=== PATIENT | female | born 1970 | race Caucasian/White ===

== ENCOUNTER 2019-11-11 17:14 | Emergency (ER) | payer OTHER ==
--- OUTSIDE RECORDS SUMMARY | 2019-11-11 17:19 | XMS REPORT | Continuity of Care Document ---
:1970 External Reference #:[id number] Author Name Wang Brasher M.D. (transmitted by agent of provider Lacey Burks) Address [address] [place] [id number] Care Team Providers Name Role Phone Jaron Vyas III, MD - Internal Care Team Information Group Leader [employer] [phone] Medicine Castillo Hillman MD - Urology Care Team Information Group Leader [employer] [phone] Lacey Narvaez M.D. - Surgery of Care Team Information Group Leader [employer] the Hand Problems Active Problems Provider Date Abdominal pain Jaron Vyas M.D. Onset: 09/11/2011 Pure hypercholesterolemia Jaron Vyas M.D. Onset: 11/16/2011 Kidney stone Jaron Vyas M.D. Onset: 11/16/2011 Allergic rhinitis Jaron Vyas M.D. Onset: 01/07/2013 Social History Type Date Description Comments Sex Unknown Tobacco Use Start: Unknown Never Smoked Cigarettes ETOH Use Denies alcohol use Tobacco Use Start: Unknown Patient has never smoked 2nd hand exposure most of youth. Smoking Status Reviewed: 10/06/19 Patient has never smoked 2nd hand exposure most of youth. Exercise Exercises regularly walks Type/Frequency Allergies, Adverse Reactions, Alerts Active Allergies Reaction Severity Comments Date Erythromycin GI Upset 11/04/2009 Steri-Strips blisters 11/16/2011 Imvexxy 08/20/2019 Medications Active Medications SIG Qnty Indications Ordering Date Provider Meloxicam take one tab 180tabs Sven Ag, 09/05/2019 7.5mg Tablets twice daily as M.D. needed for pain, avoid other NSAIDs B12 Fast Dissolve sublingual daily 90tabs Sven Arzolador, 07/17/2019 5000mcg M.DDory Tablets Dispers Estrace One gram 85gm Lizzie Hoang, 07/07/2019 0.1mg/GM Cream vaginally twice a [employer] week Patanol 1 drop both eyes 5ml Unknown 0.1% Solution every day as needed allergies Dymista Use 1 [place] In Unknown 137-50mcg/Act Each Nostril Suspension Twice A Day Levocetirizine Take 1 Tablet [place] Unknown Dihydrochloride Mouth Once Daily 5mg Tablets Famotidine OTC Unknown 10mg Tablets History Medications Imvexxy Starter Pack insert 1 tablet 16units N95.1 Lizzie Clementkins, 2018 - vaginally every [employer] 06/27/2019 10mcg Insert day for 14 days, then 2 times a week Imvexxy Maintenance insert one ovule 8units N95.1 Lizzie Clementkins, 2018 - Pack vaginally 2x/week [employer] 06/27/2019 10mcg Insert Medications Administered in Office Medication SIG Qnty Indications Ordering Provider Date Depomedrol 40MG Lacey Narvaez M.D. 04/10/2019 Injection Depomedrol 40MG Lacey Narvaez M.D. 04/10/2019 Injection Immunizations CPT Code Status Date Vaccine Reaction Lot # [id number] Given 11/04/2009 Tdap - TDAP given 03/08/11 (pt Tetanus/Diptheria/Acellular didn't receive on Pertussis 11/10/09. 0.5ml IM in left deltoid lot# [id number] exp 08/09/13 [facility] pasteur Vital Signs Date Vital Result Comment 10/06/2019 10:02am Height 64.5 inches 5'4.50" Weight 198.00 lb Heart Rate 86 /min BP Systolic 140 mmHg BP Diastolic 90 mmHg Respiratory Rate 12 /min Body Temperature 98.0 F Pain Level 2 BMI (Body Mass Index) 33.5 kg/m2 09/23/2019 9:30am Height 63 inches 5'3" Weight 194.00 lb Heart Rate 75 /min BP Systolic Sitting 143 mmHg BP Diastolic Sitting 86 mmHg BMI (Body Mass Index) 34.4 kg/m2 Results Test Acquired Facility Test Result H/L Range Note Date Alkaline Phos 07/23/2019 [facility] Alkaline 156 U/L Abnormal 35 - 104 1 Isoenzymes [address] [place] [address] [phone] Alp Liver 1% 56.1 % 27.8-76.3 Alp Liver 1 87.5 IU/L Abnormal 16.2-70.2 Alp Liver 2% 4.1 % 0.0-8.0 Alp Liver 2 6.4 IU/L Abnormal 0.0-5.8 Alp Bone % 29.3 % 19.1-67.7 Alp Bone 45.7 IU/L Abnormal 12.1-42.7 Alp Intestine % 10.5 % 0.0-20.6 Alp Intestine 16.4 IU/L Abnormal 0.0-11.0 Alp Placental NotPresent 2 Pthi 07/23/2019 [facility] PTH Intact 82.8 pg/mL Normal 12-88 [address] [place] [address] [phone] Calcium (PTH Intact) 9.4 mg/dL Normal 8.6-10.3 Laboratory test 07/10/2019 [facility] Vitamin D 21.4 ng/mL Normal 20-50 3, 4 finding 101 [facility] [place] [address] 25(Oh) [phone] Neutrophil 07/10/2019 [facility] C-Anca Negative Negative Cytoplasmic AB [address] [place], [place] [id number] [phone] P-Anca Negative Negative 5 Vitamin B6 07/10/2019 [facility] Pyridoxal 5-Phosphate 5 g/L 5-50 6 [address] [place], [place] [id number] [phone] Pyridoxic Acid 5 g/L 3-30 7 Iron & Iron Binding 07/10/2019 [facility] Iron 89 g/dL Normal 50-212 Capacity [address] [place] [address] [phone] Unsaturated Iron Binding < 418 g/dL Total Iron Binding Capacity 433 g/dL Normal 250-450 Transferrin 309 mg/dL Normal 203-362 % Iron Saturation 21 % Normal 15-55 Laboratory test 07/10/2019 [facility] Immunoglobulin E 11.1 kU/ L <= 214 8 finding (Ige) [place] [address] [phone] Tryptase 13.8 ng/mL Abnormal <11.5 9 Aldolase 6.1 U/L <7.7 10 Angiotensin Converting Enzyme 37 U/L 16 - 85 11 Celiac Hla 07/10/2019 [facility] Hla-Dqa1 SEE BELOW [address] [place] [address] [phone] [id number]-[id number] SEE BELOW 13 Celiac Gene Pairs Present? No Celiac Gene Interpretation See Comment 14 Celiac Panel 07/10/2019 [facility] Immunoglobulin A 172 mg/dL 61 - [address] [place] [address] [phone] Tissue Transglutaminase IgA Ab <1.2 U/mL 15 Celiac Interpretation See Comment 16 Viki Igg AB Reflex 07/10/2019 [facility] SS-A/Ro Antibody <0.[address] [place] [address] [phone] SS-B/La Antibody <0.2 U 18 Sm (Blanchard) IgG Antibody <0.2 U 19 CONSUMER ATTORNEY Antibody, IgG <0.2 U 20 Scl-70 (Scleroderma) Antibody <0.2 U 21 Caroline-1 Antibody <0.2 U 22 Laboratory test 07/10/2019 [facility] Thyroperoxidase AB 1.16 Normal <[address] IU/[place] [address] [phone] Anti Double Stranded Dna AB <12.3 IU/mL 24 Creatine Kinase(CK) 127 U/L Normal 10-223 25 Tick-Borne Panel 07/10/2019 [facility] Babesia Negative Negative PCR Blood [address] [place] [address] [phone] Babesia ducani Negative Negative Babesia divergens/Mo-1 Negative Negative 26 Anaplasma phagocytophilum Negative Negative Ehrlichia chaffeensis Negative Negative Ehrlichia ewingii/canis Negative Negative Ehrlichia muris eauclairensis Negative Negative 27 B. miyamotoi PCR, B Negative Negative 28 Lyme Disease AB 07/10/2019 [facility] IgG Immunoblot Negative Negative Immunoblot WB [address] [place] [address] [phone] IgG detected against p39 kDa IgM Immunoblot Negative Negative IgM detected against None kDa Lyme Disease Interpretation See Comment 29 Immunoglobulins 07/10/2019 [facility] Immunoglobulin G 851 767 - [address] mg/dL [address] [place] [address] [phone] Immunoglobulin M 73 mg/dL 37 - 286 Immunoglobulin A 174 mg/dL 61 - 356 Laboratory test 07/10/2019 [facility] Alkaline 137 U/L High 34 -104 [address] Phosphatase [place], [place] [address] [phone] Vitamin B12 And 07/10/2019 [facility] Vitamin B12 239 Normal 180-914 [address] pg/[place] [address] [phone] Folic Acid (Folate) 18.25 ng/mL >3.99 33 Laboratory 07/10/2019 [facility] Cyclic <15.[address] [place] [address] [phone] [phone] Laboratory 06/16/2019 [facility] Gardnerella/Yeast SEE RESULT 35, test finding DRIVE : Vaginal Dna BELOW [address] [place] [address] [phone] Laboratory 06/16/2019 [facility] TSH (Thyroid Stim 1.88 Normal 0.[address] Horm) mcIU/mL 4-5 [place] [address] .60 [phone] Hemoglobin A1c (Glyco HGB) 5.6 % Normal 4.0-5.6 37 FSH And LH 06/16/2019 [facility] FSH (Follicle Stim 82.5 mIU/mL [address] Hormone) [place] [address] [phone] LH (Lutenizing Hormone) 40.4 mIU/mL 39 1 Please check labs this month 2 REFERENCE VALUE Not present Test Performed by: [address] [address] Drainage Inspector: Israel Lynn M.D. Ph.D.; CLIA# [id number] 3 Please check labs this week 4 Total 25-Hydroxyvitamin D2 and D3 (25-OH-VitD) <10 ng/mL (severe deficiency) 10-19 ng/mL (mild to moderate deficiency) 20-50 ng/mL (optimum levels) 51-80 ng/mL (increased risk of hypercalciuria) >80 ng/mL (toxicity possible) 5 Negative for cANCA and pANCA patterns by immunofluorescence. ADDITIONAL INFORMATION This test was developed and its performance characteristics determined by [facility] in a manner consistent with CLIA requirements. This test has not been cleared or approved by the U.S. Food and Drug Administration. Test Performed by: [facility] [place] [address] Drainage Inspector: Israel Lynn M.D. Ph.D.; CLIA# [id number] 6 ADDITIONAL INFORMATION This test was developed and its performance characteristics determined by [facility] in a manner consistent with CLIA requirements. This test has not been cleared or approved by the U.S. Food and Drug Administration. 7 ADDITIONAL INFORMATION This test was developed and its performance characteristics determined by [facility] in a manner consistent with CLIA requirements. This test has not been cleared or approved by the U.S. Food and Drug Administration. Test Performed by: [facility] [employer] [place] [address] Drainage Inspector: Israel Lynn M.D. Ph.D.; CLIA# [id number] 8 Test Performed by: [place] [address] Drainage Inspector: Israel Lynn M.D. Ph.D.; CLIA# [id number] 9 Test Performed by: [place] [address] Drainage Inspector: Israel Lynn M.D. Ph.D.; CLIA# [id number] 10 Test Performed by: [facility] [place] [address] Drainage Inspector: Israel Lynn M.D. Ph.D.; CLIA# [id number] 11 Test Performed by: [facility] [place] [address] Drainage Inspector: Israel Lynn M.D. Ph.D.; CLIA# [id number] 12 RESULT: 01:02,02:01 REFERENCE VALUE Not Applicable 13 RESULT: 03:03,06:09 DQ Serologic Equivalent: 9,6 REFERENCE VALUE Not Applicable 14 The absence of HLA celiac permissive genes would make the presence of celiac disease unlikely. ADDITIONAL INFORMATION Method: Molecular typing of HLA antigens performed using reverse SSOP and/or SSP methods, reported as serological equivalents and low to medium resolution molecular values. Test Performed by: [facility] [place] [address] Drainage Inspector: Israel Lynn M.D. Ph.D.; CLIA# [id number] 15 REFERENCE VALUE <4.0 (Negative) Test Performed by: [facility] [address] [place] [address] Drainage Inspector: Israel Lynn M.D. Ph.D.; CLIA# [id number] 16 Negative serology. Celiac disease unlikely. However, approximately 10% of patients with celiac disease are seronegative. Also, patients who are already adhering to a gluten-free diet may be seronegative. If celiac disease is highly clinically suspected, consider HLA-DQ typing. Test Performed by: [facility] [employer] [facility] [employer] [address] [place] [address] Drainage Inspector: Israel Lynn M.D. Ph.D.; YASEMINIA# [id number] 17 REFERENCE VALUE <1.0 (Negative) 18 REFERENCE VALUE <1.0 (Negative) 19 REFERENCE VALUE <1.0 (Negative) 20 REFERENCE VALUE <1.0 (Negative) 21 REFERENCE VALUE <1.0 (Negative) 22 REFERENCE VALUE <1.0 (Negative) Test Performed by: [facility] [employer] - [facility] [employer] [address] [place] [address] Drainage Inspector: Israel Lynn M.D. Ph.D.; YASEMINIA# [id number] 23 Please check labs this week 24 REFERENCE VALUE <30.0 (Negative) Test Performed by: [facility] [address] [place] [address] Drainage Inspector: Israel Lynn M.D. Ph.D.; CLIA# [id number] 25 Please check labs this week 26 ADDITIONAL INFORMATION This test was developed and its performance characteristics determined by [facility] in a manner consistent with CLIA requirements. This test has not been cleared or approved by the U.S. Food and Drug Administration. 27 ADDITIONAL INFORMATION This test was developed and its performance characteristics determined by [facility] in a manner consistent with CLIA requirements. This test has not been cleared or approved by the U.S. Food and Drug Administration. 28 ADDITIONAL INFORMATION This test was developed and its performance characteristics determined by [facility] in a manner consistent with CLIA requirements. This test has not been cleared or approved by the U.S. Food and Drug Administration. Test Performed by: [facility] - [address] [address] Drainage Inspector: Israel Lynn M.D. Ph.D.; CLIA# [id number] 29 Specific serologic response to B. burgdorferi infection is not detected, but cannot rule out early infection during which low or undetectable antibody levels to B. burgdorferi may be present. If clinically indicated, a new serum specimen should be submitted in 7-14 days. ADDITIONAL INFORMATION Per CDC criteria, the Lyme IgG Immunoblot is interpreted as positive if IgG-class antibodies are detected to >=5 B. burgdorferi proteins, and the Lyme IgM Immunoblot is interpreted as positive if IgM-class antibodies are detected to >=2 B. burgdorferi proteins. Immunoblot patterns not meeting these criteria should not be interpreted as positive. Epitopes from certain B. burgdorferi proteins (e.g., p41) are conserved across other bacteria, which may lead to the detection of IgM- and/or IgG-class antibodies on the Lyme disease immunoblots in patients without Lyme disease. Immunoblot should only be ordered on specimens that are positive or equivocal by a FDA-licensed Lyme disease antibody screening test (e.g., EIA). Results of the Lyme IgM immunoblot should not be considered in patients with >= 30 days of symptoms. Test Performed by: [place] [address] Drainage Inspector: Israel Lynn M.D. Ph.D.; CLIA# [id number] 30 Test Performed by: [place] [address] Drainage Inspector: Israel Lynn M.D. Ph.D.; CLIA# [id number] 31 Please check labs this week 32 Normal Range 180 to 914 Indeterminate Range 145 to 180 Deficient Range <145 33 Please check labs this week 34 REFERENCE VALUE <20.0 (Negative) Test Performed by: [place] [address] Drainage Inspector: Israel Lynn M.D. Ph.D.; CLIA# [id number] 35 [id number] SEE RESULT BELOW Name: MOLLY HENDRICKSON : [address]: Lizzie Hoang NP [facility] Acct: [id number] Unit: [id number] AGE: 48 Location: [facility] Re06/16/19 SEX: F Status: REG REF SPEC: [id number] COLEMAN: 06/16/19-[address]: Lizzie Hoang NP [facility] REQ: [id number] RECD: 06/16/19 STATUS: COMP _ SOURCE: VAGINAL SPDESC: ORDERED: Tracy,Yeast DNA, Trich DNA COMMENTS: [id number] Would you like to order Trichomonas Vaginalis testing? Yes Procedure Result Reported Site Gardnerella/Yeast: Vaginal DNA Final 06/17/19- 1243 ML Organism 1 Negative Carrie Organism 2 Negative Gardnerella The presence of G. vaginalis, although suggestive, is not diagnostic for bacterial vaginosis. Results should be interpreted in conjuction with other clinical and laboratory data available. Women with vaginal discharge should be evaluated for risk factors of cervicitis and pelvic inflammatory disease, toxic shock syndrome (S.aureus), and if present, evaluated for organisms not included in this assay such as N. gonorrhoeae, C. trachomatis, Mobiluncus, Mycoplasma and/or Prevotella. Mixed infections may occur. The performance of this test on patient specimens collected during or immediately after antimicrobial therapy is unknown. The presence or absence of Carrie species, or G. vaginalis cannot be used as a test for therapeutic success or failure. Trichomonas: Vaginal DNA Probe Final 06/17/19- 1243 ML Organism 1 Negative Trichomonas CONTINUED ON NEXT PAGE DEPARTMENT OF PATHOLOGY, [address] [place] [address] Stephen Rodriguez M.D. Director [facility] # [id number] Patient: SARAHMOLLY [id number] (Continued) Specimen: [id number] Collected: 06/16/19-1029 Received: 06/16/19-1414 (Continued) Procedure Result Reported Site Trichomonas: Vaginal DNA Probe Final (continued) 06/17/19- 1243 The presence or absence of T. vaginalis cannot be used as a test for therapeutic success or failure. * - Main Lab . END OF REPORT DEPARTMENT OF PATHOLOGY, [address] [place] [address] Stephen Rodriguez M.D. Director [facility] # [id number] 37 Therapeutic target for the treatment of diabetes mellitus patients is <7% HBA1C, and in selective patients <6.0%. Please refer to [place] [employer] diabetic care guidelines for further information. 38 Normally menstruating females - Follicular phase 3 - 9 - Mid-cycle peak 4 - 23 - Luteal phase 1 - 6 Postmenopausal females 16 - 114 39 Normally menstruating females - Follicular Phase 1 - 18 - Mid-Cycle Peak 24 - 105 - Luteal Phase 0.6 - 20 Postmenopausal females 15 - 62 Procedures Date Code Description Status 04/10/2019 00509 Injection, Carpal Tunnel Completed 08/29/2018 32950623 Mammogram Completed 08/01/2017 64005672 Mammogram Completed 07/12/2016 92731916 Mammogram Completed 06/22/2015 [id number] Mammogram Completed 03/31/2013 54886545 Mammogram Completed 03/27/2012 12344698 Mammogram Completed Medical Devices Description No Information Available Encounters Type Date Location Provider Dx Diagnosis Office Visit 09/17/2019 [facility] Stephanie G56.03 Carpal tunnel 9:30a at [facility], RPA-C syndrome, bilateral upper limbs Office Visit 09/05/2019 [facility] Sven Ag, M06.4 Inflammatory 9:20a [facility] polyarthropathy Z79.1 intermediate frame tender (current) use of non-steroidal non-inflam (Nsaid) R74.8 Abnormal levels of other serum enzymes E53.8 Deficiency of other specified B group vitamins M75.51 Bursitis of right shoulder Office Visit 08/20/2019 [facility] Lizzie N95.1 Menopausal and 10:00a [facility] Office Visit 07/10/2019 Rheumat[facility] Sven M06.4 Inflammatory 11:00a [facility] M.D. 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, bilateral W57.xxxA Bit/stung by nonvenom insect & oth nonvenom arthropods, init R20.8 Other disturbances of skin sensation Office Visit 07/07/2019 3:00p [facility] Clary Hamilton, N95.2 Postmenopausal [facility] Ida atrophic vaginitis R10.2 Pelvic and perineal pain Office [facility] N95.1 Menopausal and [facility] female climacteric states N95.2 Postmenopausal atrophic vaginitis Office Visit 06/16/2019 9:30a [facility], N76.0 Acute vaginitis [facility] N95.1 Menopausal and female climacteric states N76.89 Other specified inflammation of vagina and vulva Office Visit 04/10/2019 1:30p [facility] Lacey G56.03 Carpal tunnel at Eunice Narvaez M.D. syndrome, bilateral upper limbs M79.631 Pain in right forearm M79.632 Pain in left forearm M19.041 Primary osteoarthritis, right hand M79.641 Pain in right hand M79.642 Pain in left hand Assessments Date Code Description Provider 10/06/2019 M17.11 Unilateral primary osteoarthritis, right Wang Brasher M.D. knee 09/23/2019 M25.561 Pain in right knee Jaron Vyas M.D. 09/17/2019 G56.03 Carpal tunnel syndrome, bilateral upper Stephanie Bitting, RPA-C limbs 09/05/2019 M06.4 Inflammatory polyarthropathy Sven Ag M.D. 09/05/2019 Z79.1 intermediate frame tender (current) use of non-steroidal Sven Ag M.D. anti-inflammatories (Nsaid) 09/05/2019 R74.8 Abnormal levels of other serum enzymes Sven Ag M.D. 09/05/2019 E53.8 Deficiency of other specified B group Sven Ag M.D. vitamins 09/05/2019 M75.51 Bursitis of right shoulder Sven Ag M.D. 08/20/2019 N95.1 Menopausal and female climacteric states Lizzie Hoang [facility] 07/10/2019 M06.4 Inflammatory polyarthropathy Sven Ag M.D. 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 07/10/2019 W57.xxxA Bitten or stung by nonvenomous insect and Sven Ag M.D. other nonvenomous arthropods, initial encounter 07/10/2019 R20.8 Other disturbances of skin sensation Sven Ag M.D. 07/07/2019 N95.2 Postmenopausal atrophic vaginitis Clary Hamilton, N.P. 07/07/2019 R10.2 Pelvic and perineal pain Clary Hamilton, N.P. 06/20/2019 N95.1 Menopausal and female climacteric states Lizzie Hoang [facility] 06/20/2019 N95.2 Postmenopausal atrophic vaginitis Lizzie Hoang [facility] 06/16/2019 N76.0 Acute vaginitis Lizzie Hoang [facility] 06/16/2019 N95.1 Menopausal and female climacteric states Lizzie Hoang [facility] 06/16/2019 N76.89 Other specified inflammation of vagina and Lizzie Hoang [facility] vulva 04/10/2019 G56.03 Carpal tunnel syndrome, bilateral upper Lacey Narvaez M.D. limbs 04/10/2019 M79.631 Pain in right forearm Lacey Narvaez M.D. 04/10/2019 M79.632 Pain in left forearm Lacey Narvaez M.D. 04/10/2019 M19.041 Primary osteoarthritis, right hand Lacey Narvaez M.D. 04/10/2019 M79.641 Pain in right hand Lacey Narvaez M.D. 04/10/2019 M79.642 Pain in left hand Lacey Narvaez M.D. Plan of Treatment Future Appointment(s):12/05/2019 9:40 am - Sven Ag M.D. at [facility]11/06/2019 9:00 am - Uri Guadalupe MD at [facility]10/06/2019 - Wang Brasher M.D.M17.11 Unilateral primary osteoarthritis, right kneeFollow up:Follow up: As needed Right knee mild patellar arthritis The recent episode may have been inflammatory OK to be active as able: walk ( level), bike, swim Functional Status Description No Information Available Mental Status Description No Information Available Referrals Refer to Dr Reason for Referral Status Appt Date Jodi Cage, PT, OCS Hyperrtonic pelvic floor Sent [address] [place] [address] [phone] Closed Sven Ag MD r/o inflammatory arthritis Sent 07/10/2019 [address] [facility] [place] [address] [phone]
--- OUTSIDE RECORDS SUMMARY | 2019-11-11 17:19 | XMS REPORT | Continuity of Care Document ---
:1970 External Reference #:[id number] Author Name Uri Guadalupe MD (transmitted by agent of provider Brittney Noel) Address [address] [place] [id number] Care Team Providers Name Role Phone Jaron Vyas III, MD - Internal Care Team Information Room Service Server Medicine Castillo Hillman MD - Urology Care Team Information Room Service Server [phone] Lacey Whipple M.D. - Surgery of Care Team Information Room Service Server [phone] the Hand Problems Active Problems Provider Date [...] exposure most of youth. Smoking Status Reviewed: 11/06/19 Patient has never smoked 2nd hand exposure [...] B12 Fast Dissolve sublingual daily 90tabs Sven Ag, 07/17/2019 5000mcg M.D. 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 TECHNICIAN-Cde week Patanol 1 drop both eyes 5ml Unknown 0.1% Solution every day as needed allergies Dymista Use 1 [place] In Unknown 137-50mcg/Act Each Nostril Suspension Twice A Day Levocetirizine Take 1 Tablet [place] Unknown Dihydrochloride Mouth Once Daily 5mg Tablets Famotidine OTC Unknown 10mg Tablets Primal Defense Ultra Unknown Probiotic Sacromyaces Probiotic Unknown Vitamin B Complex 1 by mouth every Unknown day Tablets Magnesium Malate Unknown 1250(141.7mg) mg Tablets Froilan Unknown Tylenol 2 tablets every 4 Unknown 325mg Capsules hours as needed for pain History Medications Imvexxy Starter Pack insert 1 tablet 16units N95.1 Lizzie Clementkins, 2018 - vaginally every 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 04/10/2019 Injection Depomedrol 40MG Lacey Whipple M.D. 04/10/2019 Injection Immunizations CPT Code Status Date Vaccine Reaction Lot # [id number] Given 11/04/2009 Tdap - TDAP given 03/08/11 (pt Tetanus/Diptheria/Acellular didn't receive on Pertussis 11/10/09. 0.5ml IM in left deltoid lot# [id number] exp 08/09/13 [facility] annofi pasteur Vital Signs Date Vital Result Comment 11/06/2019 9:08am Height 64.5 inches 5'4.50" Weight 190.00 lb Heart Rate 82 /min BP Systolic 154 mmHg BP Diastolic 87 mmHg O2 % BldC Oximetry 99 % BMI (Body Mass Index) 32.1 kg/m2 10/06/2019 10:02am Height 64.5 inches 5'4.50" Weight 198.00 lb Heart Rate 86 /min BP Systolic 140 mmHg BP Diastolic 90 mmHg Respiratory Rate 12 /min Body Temperature 98.0 F Pain Level 2 BMI (Body Mass Index) 33.5 kg/m2 Results Test Acquired Facility Test Result H/L Range Note Date Alkaline Phos 07/23/2019 [facility] Alkaline 156 U/L Abnormal 35 - [address] [place] [address] [phone] Alp Liver 1% 56.1 % 27.8-76.3 Alp Liver 1 87.5 IU/L Abnormal 16.2-70.2 Alp Liver 2% 4.1 % 0.0-8.0 Alp Liver 2 6.4 IU/L Abnormal 0.0-5.8 Alp Bone % 29.3 % 19.1-67.7 Alp Bone 45.7 IU/L Abnormal 12.1-42.7 Alp Intestine % 10.5 % 0.0-20.6 Alp Intestine 16.4 IU/L Abnormal 0.0-11.0 Alp Placental NotPresent 2 Pthi 07/23/2019 [facility] PTH Intact 82.8 pg/mL Normal 12-[address] [place], [place] [id number] [phone] Calcium (PTH Intact) 9.4 mg/dL Normal 8.6-10.3 Laboratory test 07/10/2019 [facility] Vitamin D 21.4 ng/mL Normal 20-50 3, [address] [place] [address] 25(Oh) [phone] Neutrophil 07/10/2019 [facility] C-Anca Negative Negative Cytoplasmic AB [address] [place], [place] [id number] [phone] P-Anca Negative Negative 5 Vitamin B6 07/10/2019 [facility] Pyridoxal 5-Phosphate 5 g/L 5-[address] [place] [address] [phone] Pyridoxic Acid 5 g/L 3-30 7 Iron & Iron Binding 07/10/2019 [facility] Iron 89 g/dL Normal 50-[address] [place] [address] [phone] Unsaturated Iron Binding < 418 g/dL Total Iron Binding Capacity 433 g/dL Normal 250-450 Transferrin 309 mg/dL Normal 203-362 % Iron Saturation 21 % Normal 15-55 Laboratory test 07/10/2019 [facility] Immunoglobulin E 11.1 kU/ L <= [address] (Ige) [place] [address] [phone] Tryptase 13.8 ng/mL Abnormal <11.5 9 Aldolase 6.1 U/L <7.7 10 Angiotensin Converting Enzyme 37 U/L 16 - 85 11 Celiac Hla 07/10/2019 [facility] Hla-Dqa1 SEE BELOW [address] [place] [address] [phone] Hla-DQB1 SEE BELOW 13 Celiac Gene Pairs Present? No Celiac Gene Interpretation See Comment 14 Celiac Panel 07/10/2019 [facility] Immunoglobulin A 172 mg/dL 61 - [address] [place] [address] [phone] Tissue Transglutaminase IgA Ab <1.2 U/mL 15 Celiac Interpretation See Comment 16 Viki Igg AB Reflex 07/10/2019 [facility] SS-A/Ro Antibody <0.[address] [place] [address] [phone] SS-B/La Antibody <0.2 U 18 Sm (Blanchard) IgG Antibody <0.2 U 19 FISH MACHINE FEEDER Antibody, IgG <0.2 U 20 Scl-70 (Scleroderma) Antibody <0.2 U 21 Caroline-1 Antibody <0.2 U 22 Laboratory test 07/10/2019 [facility] Thyroperoxidase AB 1.16 Normal <[address] IU/[place] [address] [phone] Anti Double Stranded Dna AB <12.3 IU/mL 24 Creatine Kinase(CK) 127 U/L Normal 10-223 25 Tick-Borne Panel 07/10/2019 [facility] Babesia Negative Negative PCR Blood [address] [place] [address] [phone] Babesia ducani Negative Negative Babesia divergens/Mo-1 Negative Negative 26 Anaplasma phagocytophilum Negative Negative Ehrlichia chaffeensis Negative Negative Ehrlichia ewingii/canis Negative Negative Ehrlichia muris eauclairensis Negative Negative 27 B. miyamotoi PCR, B Negative Negative 28 Lyme Disease AB 07/10/2019 [facility] IgG Immunoblot Negative Negative Immunoblot WB [address] [place] [address] [phone] IgG detected against p39 kDa IgM Immunoblot Negative Negative IgM detected against None kDa Lyme Disease Interpretation See Comment 29 Immunoglobulins 07/10/2019 [facility] Immunoglobulin G 851 767 - [address] mg/dL 1590 [place], [place] [address] [phone] Immunoglobulin M 73 mg/dL 37 - 286 Immunoglobulin A 174 mg/dL 61 - 356 Laboratory test 07/10/2019 [facility] Alkaline 137 U/L High 34 -[address] [place] [address] [phone] Vitamin B12 And 07/10/2019 [facility] Vitamin B12 239 Normal 180-[address] pg/mL [place], [place] [address] [phone] Folic Acid (Folate) 18.25 ng/mL >3.99 33 Laboratory 07/10/2019 [facility] Cyclic <15.[address] [place] [address] [phone] [phone] Laboratory 06/16/2019 [facility] Gardnerella/Yeast SEE RESULT 35, test finding [address] : Vaginal Dna BELOW 36 [place] [address] [phone] Laboratory 06/16/2019 [facility] TSH (Thyroid Stim 1.88 Normal 0.[address] Horm) mcIU/mL 4-5 [place] [address]60 [phone] Hemoglobin A1c (Glyco HGB) 5.6 % Normal 4.0-5.6 37 FSH And LH 06/16/2019 [facility] FSH (Follicle Stim 82.5 mIU/mL [address] Hormone) [place], [place] [id number] [phone] LH (Lutenizing Hormone) 40.4 mIU/mL 39 1 Please check labs this month 2 REFERENCE VALUE Not present Test Performed by: [facility] - [address] [address] Radio Station Engineer: Israel Lynn M.D. Ph.D.; CLIA# [id number] 3 Please check labs this week 4 Total 25-Hydroxyvitamin D2 and D3 (25-OH-VitD) <10 ng/mL (severe deficiency) 10-19 ng/mL (mild to moderate deficiency) 20-50 ng/mL (optimum levels) 51-80 ng/mL (increased risk of hypercalciuria) >80 ng/mL (toxicity possible) 5 Negative for cANCA and pANCA patterns by immunofluorescence. ADDITIONAL INFORMATION This test was developed and its performance characteristics determined by [facility] in a manner consistent with CLIA requirements. This test has not been cleared or approved by the U.S. Food and Drug Administration. Test Performed by: [facility] - [place] [id number] Radio Station Engineer: Israel Lynn M.D. Ph.D.; CLIA# [id number] 6 ADDITIONAL INFORMATION This test was developed and its performance characteristics determined by [facility] in a manner consistent with CLIA requirements. This test has not been cleared or approved by the U.S. Food and Drug Administration. 7 ADDITIONAL INFORMATION This test was developed and its performance characteristics determined by [facility] in a manner consistent with CLIA requirements. This test has not been cleared or approved by the U.S. Food and Drug Administration. Test Performed by: [facility] [place] [address] Radio Station Engineer: Israel Lynn M.D. Ph.D.; CLIA# [id number] 8 Test Performed by: [facility] [place] [address] Radio Station Engineer: Israel Lynn M.D. Ph.D.; CLIA# [id number] 9 Test Performed by: [facility] [place] [address] Radio Station Engineer: Israel Lynn M.D. Ph.D.; CLIA# [id number] 10 Test Performed by: [place] [address] Radio Station Engineer: Israel Lynn M.D. Ph.D.; CLIA# [id number] 11 Test Performed by: [place] [address] Radio Station Engineer: Israel Lynn M.D. Ph.D.; CLIA# [id number] 12 RESULT: 01:02,02:01 REFERENCE VALUE Not Applicable 13 RESULT: 03:03,06:09 DQ Serologic Equivalent: 9,6 REFERENCE VALUE Not Applicable 14 The absence of HLA celiac permissive genes would make the presence of celiac disease unlikely. ADDITIONAL INFORMATION Method: Molecular typing of HLA antigens performed using reverse SSOP and/or SSP methods, reported as serological equivalents and low to medium resolution molecular values. Test Performed by: [place] [address] Radio Station Engineer: Israel Lynn M.D. Ph.D.; CLIA# [id number] 15 REFERENCE VALUE <4.0 (Negative) Test Performed by: [facility] Results [facility] [address] [place] [address] Radio Station Engineer: Israel Lynn M.D. Ph.D.; CLIA# [id number] 16 Negative serology. Celiac disease unlikely. However, approximately 10% of patients with celiac disease are seronegative. Also, patients who are already adhering to a gluten-free diet may be seronegative. If celiac disease is highly clinically suspected, consider HLA-DQ typing. Test Performed by: [facility] Results [facility] [address] [place] [address] Radio Station Engineer: Israel Lynn M.D. Ph.D.; CLIA# [id number] 17 REFERENCE VALUE <1.0 (Negative) 18 REFERENCE VALUE <1.0 (Negative) 19 REFERENCE VALUE <1.0 (Negative) 20 REFERENCE VALUE <1.0 (Negative) 21 REFERENCE VALUE <1.0 (Negative) 22 REFERENCE VALUE <1.0 (Negative) Test Performed by: [facility] Results [facility] [place] [id number] Radio Station Engineer: Israel Lynn M.D. Ph.D.; CLIA# [id number] 23 Please check labs this week REFERENCE VALUE <30.0 (Negative) Test Performed by: [facility] [address] Radio Station Engineer: Israel Lynn M.D. Ph.D.; CLIA# [id number] 25 Please check labs this ADDITIONAL INFORMATION This test was developed and its performance characteristics determined by [facility] in a manner consistent with CLIA requirements. This test has not been cleared or approved by the U.S. Food and Drug Administration. 27 ADDITIONAL INFORMATION This test was developed and its performance characteristics determined by [facility] in a manner consistent with CLIA requirements. This test has not been cleared or approved by the U.S. Food and Drug Administration. 28 ADDITIONAL INFORMATION This test was developed and its performance characteristics determined by [facility] in a manner consistent with CLIA requirements. This test has not been cleared or approved by the U.S. Food and Drug Administration. Test Performed by: [facility] - [address] [address] Radio Station Engineer: Israel Lynn M.D. Ph.D.; CLIA# [id number] 29 Specific serologic response to B. burgdorferi [...] 30 days of symptoms. Test Performed by: [facility] [address] Radio Station Engineer: Israel Lynn M.D. Ph.D.; CLIA# [id number] 30 Test Performed by: [place] [address] Radio Station Engineer: Israel Lynn M.D. Ph.D.; CLIA# [id number] 31 Please check labs this week 32 Normal Range 180 to 914 Indeterminate Range 145 to 180 Deficient Range <145 33 Please check labs this week 34 REFERENCE VALUE <20.0 (Negative) Test Performed by: [place] [address] Radio Station Engineer: Israel Lynn M.D. Ph.D.; CLIA# [id number] 35 [id number] SEE RESULT BELOW Name: MOLLY HENDRICKSON : [address]: Lizzie Hoang NP [facility] Acct: [id number] Unit: [id number] AGE: 48 Location: [facility] Re06/16/19 SEX: F Status: REG REF SPEC: [id number] COLEMAN: 06/16/19-[address]: Lizzie Hoang NP [facility] REQ: [id number] RECD: 06/16/19 STATUS: COMP _ SOURCE: VAGINAL SPDESC: ORDERED: Tracy,Yeast DNA, Trich DNA COMMENTS: [id number] Would you like to order Trichomonas Vaginalis [...] CONTINUED ON NEXT PAGE DEPARTMENT OF PATHOLOGY, [address] [place] [address] Stephen Rodriguez M.D. Director [facility] # [id number] Patient: MOLLY HENDRICKSON [id number] (Continued) Specimen: [id number] Collected: 06/16/19 Received: 06/16/19-1414 (Continued) Procedure Result Reported Site Trichomonas: Vaginal DNA Probe Final (continued) 06/17/19- 1243 The presence or absence of T. vaginalis cannot be used as a test for therapeutic success or failure. * [facility] - Main Lab . END OF REPORT DEPARTMENT OF PATHOLOGY, [address] [place] [address] Stephen Rodriguez M.D. Director [facility] # [id number] 37 Therapeutic target for the treatment of diabetes mellitus patients is <7% HBA1C, and in selective patients <6.0%. Please refer to [place] [employer] diabetic care guidelines for further [...] - 62 Procedures Date Code Description Status 08/29/2018 [id number] Mammogram Completed 08/01/2017 [id number] Mammogram Completed 07/12/2016 [id number] Mammogram Completed 06/22/2015 [id number] Mammogram Completed 03/31/2013 [id number] Mammogram Completed 03/27/2012 [id number] Mammogram Completed Medical Devices Description No Information Available Encounters Type Date Location Provider Dx Diagnosis Office Visit 10/06/2019 [facility] Wang Brasher M.D. M17.11 Unilateral primary 9:30a at [place] osteoarthritis, right knee M25.561 Pain in right knee Office Visit 09/23/2019 [facility] Lynne Jaron HutchinsonDory M25.561 Pain in right knee 9:20a Medicine - [facility] Vyas M.D. Office Visit 09/17/2019 [place] Stephanie G56.03 [facility] [place] RPA-C upper limbs Office Visit 09/05/2019 [facility] Sven M06.4 Inflammatory 9:20a [facility] M.D. polyarthropathy Z79.1 long-term (current) use of non-steroidal non-inflam (Nsaid) R74.8 Abnormal levels of other serum enzymes E53.8 Deficiency of other specified B group vitamins M75.51 Bursitis of right shoulder Office Visit 08/20/2019 [facility] Lizzie N95.1 Menopausal and 10:00a [facility] Viktor female climacteric [facility] states Office Visit 07/10/2019 Rheumat[facility] Sven M06.4 Inflammatory 11:00a [facility] M.D. 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 atrophic vaginitis R10.2 Pelvic and perineal pain Office Visit 06/20/2019 9:30a [facility] Lizzie Hoang N95.1 Menopausal and [facility] female climacteric states N95.2 Postmenopausal atrophic vaginitis Office Visit 06/16/2019 9:30a [facility] Lizzie Hoang N76.0 Acute vaginitis [facility] N95.1 Menopausal and female climacteric states N76.89 Other specified inflammation of vagina and vulva Assessments Date Code Description Provider 11/06/2019 Z01.419 Encounter for gynecological examination Uri Guadalupe MD (general) (routine) without abnormal findings 11/06/2019 Z12.31 Encounter for screening mammogram for Uri Guadalupe MD malignant neoplasm of breast 11/06/2019 N94.10 Unspecified dyspareunia Uri Guadalupe MD 10/06/2019 M17.11 Unilateral primary osteoarthritis, right Wang Brasher M.D. knee 10/06/2019 M25.561 Pain in right knee Wang Brasher M.D. 09/23/2019 M25.561 Pain in right knee Jaron Vyas M.D. 09/17/2019 G56.03 Carpal tunnel syndrome, bilateral upper Stephanie Bitting, RPA-C limbs 09/05/2019 M06.4 Inflammatory polyarthropathy Sven Ag M.D. 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 anti-inflammatories (Nsaid) 09/05/2019 R74.8 Abnormal levels of other serum enzymes Sven Ag M.D. 09/05/2019 E53.8 Deficiency of other specified B group Sven Ag M.D. vitamins 09/05/2019 M75.51 Bursitis of right shoulder Sven Ag M.D. 08/20/2019 N95.1 Menopausal and female climacteric states JORGE LUIS Oropeza 07/10/2019 M06.4 Inflammatory polyarthropathy Sven Ag M.D. [...] 06/20/2019 N95.1 Menopausal and female climacteric states JORGE LUIS Oropeza 06/20/2019 N95.2 Postmenopausal atrophic vaginitis Lizzie Hoang [facility] 06/16/2019 N76.0 Acute vaginitis Lizzie Hoang [facility] 06/16/2019 N95.1 Menopausal and female climacteric states Lizzie Hoang [facility] 06/16/2019 N76.89 Other specified inflammation of vagina and Lizzie Hoang [facility] vulva Plan of Treatment Future Appointment(s):12/05/2019 9:40 am - Sven Ag M.D. at [facility]11/06/2019 - Uri Guadalupe MDZ01.419 Encounter for gynecological examination (general) (routine) without abnormal hidadrsbZ33.31 Encounter for screening mammogram for malignant neoplasm of iqugcqB09.10 Unspecified dyspareunia Functional Status Description No Information Available Mental Status Description No Information Available Referrals Refer to Reason for Referral Status Appt Date Jodi Cage, PT, OCS Hyperrtonic pelvic floor Sent [address] [place] [address] [phone]
--- OUTSIDE RECORDS SUMMARY | 2019-11-11 17:19 | XMS REPORT | Continuity of Care Document ---
:1970 External Reference #:[id number] Author Name Jaron Vyas M.D. (transmitted by agent of provider Mikayla Vega ) Address [address] [place] [address], [address] [place] [id number] Care Team Providers Name Role Phone Jaron Vyas III, MD - Internal Care Team Information [facility] Castillo Hillman MD - Urology Care Team Information Stemhole Borer [phone] Lacey Narvaez M.D. - Surgery of Care Team Information Stemhole Borer [phone] the Hand Problems Active Problems Provider Date [...] exposure most of youth. Smoking Status Reviewed: 09/23/19 Patient has never smoked 2nd hand exposure [...] sublingual daily 90tabs Sven Arzolador, 07/17/2019 5000mcg M.D. Tablets Dispers Estrace One gram 85gm Lizzie Hoang, 07/07/2019 0.1mg/GM Cream vaginally twice a HEAD GREENSKEEPER-Cde week Patanol 1 drop both eyes 5ml Unknown 0.1% Solution every day as needed allergies Dymista Use 1 Cashion In Unknown 137-50mcg/Act Each Nostril Suspension Twice A Day Levocetirizine Take 1 Tablet [place] Unknown Dihydrochloride Mouth Once Daily 5mg Tablets History Medications Imvexxy Starter Pack insert 1 tablet 16units N95.1 Lizzie Clementkins, 2018 - vaginally every HEAD GREENSKEEPER-Cde 06/27/2019 10mcg Insert day for 14 days, then 2 times a week Imvexxy Maintenance insert one ovule 8units N95.1 Lizzie Clementkins, 2018 - Pack vaginally 2x/week HEAD GREENSKEEPER-Cde 06/27/2019 10mcg Insert Medications Administered in Office Medication SIG Qnty Indications Ordering Provider Date Depomedrol 40MG Lacey Narvaez M.D. 04/10/2019 Injection Depomedrol 40MG Lacey Narvaez M.D. 04/10/2019 Injection Immunizations CPT Code Status Date Vaccine Reaction Lot # [id number] Given 11/04/2009 Tdap - TDAP given 03/08/11 (pt Tetanus/Diptheria/Acellular didn't receive on Pertussis 11/10/09. 0.5ml IM in left deltoid lot# [id number] exp 08/09/13 [facility] [employer] Vital Signs Date Vital Result Comment 09/23/2019 9:30am Height 63 inches 5'3" Weight 194.00 lb Heart Rate 75 /min BP Systolic Sitting 143 mmHg BP Diastolic Sitting 86 mmHg BMI (Body Mass Index) 34.4 kg/m2 09/17/2019 10:18am Height 63 inches 5'3" Weight 194.00 lb Heart Rate 85 /min BP Systolic 118 mmHg BP Diastolic 86 mmHg Respiratory Rate 18 /min Body Temperature 98.8 F Pain Level 2 BMI (Body Mass Index) 34.4 kg/m2 Results Test Acquired Facility Test Result H/L Range Note Date Alkaline Phos 07/23/2019 [facility] Alkaline 156 U/L Abnormal 35 - 104 1 Isoenzymes [address] [place] [address] [phone] Alp Liver 1% 56.1 % 27.8-76.3 Alp Liver 1 87.5 IU/L Abnormal 16.2-70.2 Alp Liver 2% 4.1 % 0.0-8.0 Alp Liver 2 6.4 IU/L Abnormal 0.0-5.8 Alp Bone % 29.3 % 19.1-67.7 Alp Bone 45.7 IU/L Abnormal 12.1-42.7 Alp Intestine % 10.5 % 0.0-20.6 Alp Intestine 16.4 IU/L Abnormal 0.0-11.0 Alp Placental NotPresent 2 Pthi 07/23/2019 [facility] PTH Intact 82.8 pg/mL Normal 12-88 [address] [place] [address] [phone] Calcium (PTH Intact) 9.4 mg/dL Normal 8.6-10.3 Laboratory test 07/10/2019 [facility] Vitamin D 21.4 ng/mL Normal 20-50 3, 4 finding [address] [place] [address] 25(Oh) [phone] Neutrophil 07/10/2019 [facility] C-Anca Negative Negative Cytoplasmic AB [address] [place] [address] [phone] P-Anca Negative Negative 5 Vitamin B6 07/10/2019 [facility] Pyridoxal 5-Phosphate 5 g/L 5-50 6 [address] [place] [address] [phone] Pyridoxic Acid 5 g/L 3-30 7 Iron & Iron Binding 07/10/2019 [facility] Iron 89 g/dL Normal 50-212 Capacity [address] [place] [address] [phone] Unsaturated Iron Binding < 418 g/dL Total Iron Binding Capacity 433 g/dL Normal 250-450 Transferrin 309 mg/dL Normal 203-362 % Iron Saturation 21 % Normal 15-55 Laboratory test 07/10/2019 [facility] Immunoglobulin E 11.1 kU/ L <= 214 8 finding [address] (Ige) [place] [address] [phone] Tryptase 13.8 ng/mL Abnormal <11.5 9 Aldolase 6.1 U/L <7.7 10 Angiotensin Converting Enzyme 37 U/L 16 - 85 11 Celiac Hla 07/10/2019 [facility] Hla-Dqa1 SEE BELOW [address] [place] [address] [phone] Hla-DQB1 SEE BELOW 13 Celiac Gene Pairs Present? No Celiac Gene Interpretation See Comment 14 Celiac Panel 07/10/2019 [facility] Immunoglobulin A 172 mg/dL 61 - [address] [place] [address] [phone] Tissue Transglutaminase IgA Ab <1.2 U/mL 15 Celiac Interpretation See Comment 16 Viki Igg AB Reflex 07/10/2019 [facility] SS-A/Ro Antibody <0.[address] [place] [address] [phone] SS-B/La Antibody <0.2 U 18 Sm (Blanchard) IgG Antibody <0.2 U 19 MANAGER ACUTE Antibody, IgG <0.2 U 20 Scl-70 (Scleroderma) Antibody <0.2 U 21 Caroline-1 Antibody <0.2 U 22 Laboratory test 07/10/2019 [facility] Thyroperoxidase AB 1.16 Normal <9 23 finding 101 [facility] IU/[place] [address] [phone] Anti Double Stranded Dna AB <12.3 IU/mL 24 Creatine Kinase(CK) 127 U/L Normal 10-223 25 Tick-Borne Panel 07/10/2019 [facility] Babesia Negative Negative PCR Blood 101 [facility] [place] [address] [phone] Babesia ducani Negative Negative Babesia divergens/Mo-1 Negative Negative 26 Anaplasma phagocytophilum Negative Negative Ehrlichia chaffeensis Negative Negative Ehrlichia ewingii/canis Negative Negative Ehrlichia muris eauclairensis Negative Negative 27 B. miyamotoi PCR, B Negative Negative 28 Lyme Disease AB 07/10/2019 [facility] IgG Immunoblot Negative Negative Immunoblot WB [address] [place] [address] [phone] IgG detected against p39 kDa IgM Immunoblot Negative Negative IgM detected against None kDa Lyme Disease Interpretation See Comment 29 Immunoglobulins 07/10/2019 [facility] Immunoglobulin G 851 767 - 30 Serum Quant mg/dL [address] [place] [address] [phone] Immunoglobulin M 73 mg/dL 37 - 286 Immunoglobulin A 174 mg/dL 61 - 356 Laboratory test 07/10/2019 [facility] Alkaline 137 U/L High 34 -[address] Phosphatase [place], [place] [address] [phone] Vitamin B12 And 07/10/2019 [facility] Vitamin B12 239 Normal 180-[address] pg/mL [place], [place] [address] [phone] Folic Acid (Folate) 18.25 ng/mL >3.99 33 Laboratory 07/10/2019 [facility] Cyclic <15.[address] [place] [address] Igg [phone] Laboratory 06/16/2019 [facility] Gardnerella/Yeast SEE RESULT 35, test finding DRIVE : Vaginal Dna BELOW 36 [place] [address] [phone] Laboratory 06/16/2019 [facility] TSH (Thyroid Stim 1.88 Normal 0[address] Horm) mcIU/mL 4-5 [place] [address] .60 [phone] Hemoglobin A1c (Glyco HGB) 5.6 % Normal 4.0-5.6 37 FSH And LH 06/16/2019 [facility] FSH (Follicle Stim 82.5 mIU/mL [address] Hormone) [place] [address] [phone] LH (Lutenizing Hormone) 40.4 mIU/mL 39 1 Please check labs this month 2 REFERENCE VALUE Not present Test Performed by: [address] [address] Senior Medical Billing Specialist: Israel Lynn M.D. Ph.D.; CLIA# [id number] 3 Please check labs this week 4 Total 25-Hydroxyvitamin D2 and D3 (25-OH-VitD) <10 ng/mL (severe deficiency) 10-19 ng/mL (mild to moderate deficiency) 20-50 ng/mL (optimum levels) 51-80 ng/mL (increased risk of hypercalciuria) >80 ng/mL (toxicity possible) 5 Negative for cANCA and pANCA patterns by immunofluorescence. ADDITIONAL INFORMATION This test was developed and its performance characteristics determined by [facility] in a manner consistent with CLIA requirements. This test has not been cleared or approved by the U.S. Food and Drug Administration. Test Performed by: [facility] [place] [address] Senior Medical Billing Specialist: Israel Lynn M.D. Ph.D.; CLIA# [id number] 6 ADDITIONAL INFORMATION This test was developed and its performance characteristics determined by [facility] in a manner consistent with CLIA requirements. This test has not been cleared or approved by the U.S. Food and Drug Administration. 7 ADDITIONAL INFORMATION This test was developed and its performance characteristics determined by [facility] in a manner consistent with CLIA requirements. This test has not been cleared or approved by the U.S. Food and Drug Administration. Test Performed by: [place] [address] Senior Medical Billing Specialist: Israel Lynn M.D. Ph.D.; CLIA# [id number] 8 Test Performed by: [place] [address] Senior Medical Billing Specialist: Israel Lynn M.D. Ph.D.; CLIA# [id number] 9 Test Performed by: [place] [address] Senior Medical Billing Specialist: Israel Lynn M.D. Ph.D.; CLIA# [id number] 10 Test Performed by: [address] [address] Senior Medical Billing Specialist: Israel Lynn M.D. Ph.D.; CLIA# [id number] 11 Test Performed by: [place] [address] Senior Medical Billing Specialist: Israel Lynn M.D. Ph.D.; CLIA# [id number] 12 RESULT: 01:02,02:01 REFERENCE VALUE Not Applicable 13 RESULT: 03:03,06:09 DQ Serologic Equivalent: 9,6 REFERENCE VALUE Not Applicable 14 The absence of HLA celiac permissive genes would make the presence of celiac disease unlikely. ADDITIONAL INFORMATION Method: Molecular typing of HLA antigens performed using reverse SSOP and/or SSP methods, reported as serological equivalents and low to medium resolution molecular values. Test Performed by: [place] [address] Senior Medical Billing Specialist: Israel Lynn M.D. Ph.D.; CLIA# [id number] 15 REFERENCE VALUE <4.0 (Negative) Test Performed by: [facility] [address] [place] [address] Senior Medical Billing Specialist: Israel Lynn M.D. Ph.D.; CLIA# [id number] 16 Negative serology. Celiac disease unlikely. However, approximately 10% of patients with celiac disease are seronegative. Also, patients who are already adhering to a gluten-free diet may be seronegative. If celiac disease is highly clinically suspected, consider HLA-DQ typing. Test Performed by: [facility] [place] [facility] [place] [address] Senior Medical Billing Specialist: Israel Lynn M.D. Ph.D.; CLIA# [id number] 17 REFERENCE VALUE <1.0 (Negative) 18 REFERENCE VALUE <1.0 (Negative) 19 REFERENCE VALUE <1.0 (Negative) 20 REFERENCE VALUE <1.0 (Negative) 21 REFERENCE VALUE <1.0 (Negative) 22 REFERENCE VALUE <1.0 (Negative) Test Performed by: [facility] [place] [facility] [address] [place] [address] Senior Medical Billing Specialist: Israel Lynn M.D. Ph.D.; CLIA# [id number] 23 Please check labs this week 24 REFERENCE VALUE <30.0 (Negative) Test Performed by: [facility] [place] [address] Senior Medical Billing Specialist: Israel Lynn M.D. Ph.D.; CLIA# [id number] 25 Please check labs this week 26 ADDITIONAL INFORMATION This test was developed and its performance characteristics determined by [facility] in a manner consistent with CLIA requirements. This test has not been cleared or approved by the U.S. Food and Drug Administration. 27 ADDITIONAL INFORMATION This test was developed and its performance characteristics determined by [facility] in a manner consistent with CLIA requirements. This test has not been cleared or approved by the U.S. Food and Drug Administration. 28 ADDITIONAL INFORMATION This test was developed and its performance characteristics determined by [facility] in a manner consistent with CLIA requirements. This test has not been cleared or approved by the U.S. Food and Drug Administration. Test Performed by: [address] [address] Senior Medical Billing Specialist: Israel Lynn M.D. Ph.D.; CLIA# [id number] 29 Specific serologic response to B. burgdorferi [...] 30 days of symptoms. Test Performed by: [place] [address] Senior Medical Billing Specialist: Israel Lynn M.D. Ph.D.; CLIA# [id number] 30 Test Performed by: [place] [address] Senior Medical Billing Specialist: Israel Lynn M.D. Ph.D.; CLIA# [id number] 31 Please check labs this week 32 Normal Range 180 to 914 Indeterminate Range 145 to 180 Deficient Range <145 33 Please check labs this week 34 REFERENCE VALUE <20.0 (Negative) Test Performed by: [place] [address] Senior Medical Billing Specialist: Israel Lynn M.D. Ph.D.; CLIA# [id number] 35 [id number] 36 SEE RESULT BELOW Name: MOLLY HENDRICKSON : [address]: Lizzie Hoang NP [facility] Acct: [id number] Unit: [id number] AGE: 48 Location: [facility] Re06/16/19 SEX: F Status: REG REF SPEC: [id number] COLEMAN: 06/16/19-[address]: Lizzie Hoang [facility] REQ: [id number] RECD: 06/16/19 STATUS: COMP _ SOURCE: VAGINAL SPDESC: ORDERED: Tracy,Yeast DNA, Trich DNA COMMENTS: [id number] Would you like to order Trichomonas Vaginalis [...] CONTINUED ON NEXT PAGE DEPARTMENT OF PATHOLOGY, [address] [place] [address] Stephen Rodriguez M.D. Director [facility] # [id number] Patient: MOLLY HENDRICKSON [id number] (Continued) Specimen: [id number] Collected: 06/16/19-1029 Received: 06/16/19-1414 (Continued) Procedure Result Reported Site Trichomonas: Vaginal DNA Probe Final (continued) 06/17/19- 1243 The presence or absence of T. vaginalis cannot be used as a test for therapeutic success or failure. * ML - Main Lab . END OF REPORT DEPARTMENT OF PATHOLOGY, [address] [place] [address] Stephen Rodriguez M.D. Director [facility] # [id number] 37 Therapeutic target for the treatment of diabetes mellitus patients is <7% HBA1C, and in selective patients <6.0%. Please refer to [place] [employer] diabetic care guidelines for further [...] 62 Procedures Date Code Description Status 04/10/2019 63820 Injection, Carpal Tunnel Completed 08/29/2018 [id number] Mammogram Completed 08/01/2017 [id number] Mammogram Completed 07/12/2016 [id number] Mammogram Completed 06/22/2015 [id number] Mammogram Completed 03/31/2013 [id number] Mammogram Completed 03/27/2012 [id number] Mammogram Completed Medical Devices Description No Information Available Encounters Type Date Location Provider Dx Diagnosis Office Visit 09/05/2019 Rheumatology Sven Ag, M06.4 Inflammatory 9:20a [facility] polyarthropathy 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, bilateral W57.xxxA Bit/stung by nonvenom insect & oth nonvenom arthropods, init R20.8 Other disturbances of skin sensation Office Visit 07/07/2019 3:00p [facility] Clary Hamilton, N95.2 Postmenopausal [facility] atrophic vaginitis R10.2 Pelvic and perineal pain Office Visit [facility] female climacteric states N95.2 Postmenopausal atrophic vaginitis Office Visit 06/16/2019 9:30a [facility], N76.0 Acute vaginitis [facility] N95.1 Menopausal and female climacteric states N76.89 Other specified inflammation of vagina and vulva Office Visit 04/10/2019 1:30p [facility] Lacey G56.03 Carpal tunnel at Eunice Narvaez M.D. syndrome, bilateral upper limbs M79.631 Pain in right forearm M79.632 Pain in left forearm M19.041 Primary osteoarthritis, right hand M79.641 Pain in right hand M79.642 Pain in left hand Assessments Date Code Description Provider 09/23/2019 M25.561 Pain in right knee Jaron Vyas M.D. 09/17/2019 G56.03 Carpal tunnel syndrome, bilateral upper Stephanie Bitting, RPA-C limbs 09/05/2019 M06.4 Inflammatory polyarthropathy Sven Ag M.D. 09/05/2019 Z79.1 machine molder squeeze (current) use of non-steroidal Sven Ag M.D. anti-inflammatories (Nsaid) 09/05/2019 R74.8 Abnormal levels of other serum enzymes Sven Ag M.D. 09/05/2019 E53.8 Deficiency of other specified B group Sven Ag M.D. vitamins 09/05/2019 M75.51 Bursitis of right shoulder Sven Ag M.D. 08/20/2019 N95.1 Menopausal and female climacteric states Lizzie Clementkins, [facility] 07/10/2019 M06.4 Inflammatory polyarthropathy Sven Ag [...] N95.1 Menopausal and female climacteric states Lizzie Hoang, [facility] 06/20/2019 N95.2 Postmenopausal atrophic vaginitis Lizzie Viktor, [facility] 06/16/2019 N76.0 Acute vaginitis Lizzie Hoang [facility] 06/16/2019 N95.1 Menopausal and female climacteric states Lizzie Viktor, [facility] 06/16/2019 N76.89 Other specified inflammation of vagina and Lizzie Clementlinda [facility] vulva 04/10/2019 G56.03 Carpal tunnel syndrome, bilateral upper Lacey Narvaez M.D. limbs 04/10/2019 M79.631 Pain in right forearm Lacey Narvaez M.D. 04/10/2019 M79.632 Pain in left forearm Lacey Narvaez M.D. 04/10/2019 M19.041 Primary osteoarthritis, right hand Lacey Narvaez M.D. 04/10/2019 M79.641 Pain in right hand Lacey Narvaez M.D. 04/10/2019 M79.642 Pain in left hand Lacey Narvaez M.D. Plan of Treatment Future Appointment(s):10/06/2019 9:30 am - Wang Brasher M.D. at [facility] at [id number]/05/2019 9:40 am - Sven Ag M.D. at [facility]11/06/2019 9:00 am - Uri Guadalupe MD at [facility]09/23/2019 - Jaron Vyas M.D.M25.561 Pain in right knee Functional Status Description No Information Available Mental Status Description No Information Available Referrals Refer to Dr Reason for Referral Status Appt Date Jodi Cage, PT, OCS Hyperrtonic pelvic floor Sent [address] [place] [address] [phone] Closed Sven Ag MD r/o inflammatory arthritis Sent 07/10/2019 [address] [facility] [place] [address] [phone]
--- NOTE | 2019-11-11 18:22 | UC ---
Nausea/Vomiting/Diarrhea HPI - HPI Summary HPI Summary: Pt presents to with . Pt presents with 36 hours of fatigue, myalgia, cough, congestion, frontal COTTRELL. No fever. Pt recently travelled by care to [place] and [place]. No sob, cp. Pt did not get flu vaccine. immunizaiton slighty compromised from "low level lyme disease" followed by out of town specialst - no treatment. Pt is also being evaluated for rhuem diseases and fibromyalgia. Pt states decreased appetitis related to nausea. no vomiting, no diarrhea. 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 no confusion, viision changes, rash medications as entered in EMR Reviewed this visit - History of Current Complaint Chief Complaint: UCRespiratory Stated Complaint: NAUSEA Time Seen by Provider: 11/11/19 18:03 Hx Obtained From: Patient, Family/Cartridge Loader ?: No Onset/Duration: Gradual Onset Severity Initially: Mild Pain Intensity: 8 - Allergies/Home Medications Allergies/Adverse Reactions: Allergies Allergy/AdvReac Type Severity Reaction Status Date / Time erythromycin base Allergy GI Upset Verified 11/11/19 17:43 oxycodone Allergy Headache Verified 11/11/19 17:43 ADHESIVE TAPE (STERISTRIPS) Allergy Blisters Uncoded 04/05/15 11:42 ENVIRONMENTAL Allergy SINUS Uncoded 04/05/15 11:42 HEADACHE ONIONS/GARLIC Allergy VIOLENT GI Uncoded 04/05/15 11:42 UPSET Home Medications: Home Medications B12/Iodin/Mag/Zinc/Ashley/[id number] [Adrenoid Capsule] 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 Acidophilus/L. Rhamnosus [Probiotic 15 Billion Cell Cap] 1 tab PO DAILY 11/11 [History Confirmed 11/11/19] Meloxicam 7.5 mg PO Q6HR 11/11/19 [History Confirmed 11/11/19] Vit D3-Vit K/Berberine/Hops [Ostera Tablet] 1 tab PO DAILY 11/11/19 [History Confirmed 11/11/19] PMH/Surg Hx/FS Hx/Imm Hx Previously Healthy: Yes - Surgical History Surgical History: Yes Surgery Procedure, Year, and Place: 1994 LEFT SALPHINGO-OOPHORECTOMY AND CYSTECTOMY, BLANDING. 1997,1999,2001,2004 C SECTION X 4, [facility]. 2007 HYSTERECTOMY, [facility]. FOOT SURGERIES, [facility] - Family History Known Family History: Positive: Non-Contributory - Social History Occupation: Works From/At Home Lives: With Family Alcohol Use: None Substance Use Type: None Smoking Status (MU): Never Smoked Tobacco Review of Systems All Other Systems Reviewed And Are Negative: Yes Constitutional: Positive: Chills, Fatigue Skin: Positive: Negative ENT: Positive: Nasal Discharge, Sinus Congestion Respiratory: Positive: Cough. Negative: Shortness Of Breath Cardiovascular: Positive: Negative Gastrointestinal: Positive: Nausea. Negative: Abdominal Pain Genitourinary: Positive: Negative Physical Exam - Summary Physical Exam Summary: Vital Signs Reviewed: Yes A+Ox3, tired appearing, appropriate Eyes: Conjunctiva Clear, VAMSHI. EOM intact and full ENT: Hearing grossly normal TM x 2 clear, turbinates inflammed and boggy, + PND , mmoist, uvula midline, no exudate, no erythema Neck: Positive: Supple Respiratory: Positive: No respiratory distress, No accessory muscle use + CTA throughout no w/r Cardiovascular: RRR nl s1, s2 no m/r CBT <2 sec abd soft + BS nt/nd no guarding, no distension Musculoskeletal Exam: SANDS x 4 without difficulty Strength Intact, ROM Intact Neurological: Positive: Alert, + sensation throughout Psychological: Positive: Normal Response To mirror silverer Skin: Positive: no rash, no ecchymosis Triage Information Reviewed: Yes Vital Signs: Initial Vital Signs Temp 98.5 F 11/11/19 17:26 Pulse 90 11/11/19 17:26 Resp 12 11/11/19 17:26 BP 148/89 11/11/19 17:26 Pulse Ox 99 11/11/19 17:26 Re-Evaluation - Re-Evaluation First Eval Comment: Pt states zofran helped -drank bottle, tolerate APAP. Pt presenting as influenza - has mild immunosuppresant - will start tamiflu. secretion precaution. return precaution. hydrate. motrin/apap. strict return precuations discussed Naus/Vom/Diarrhea Course/Dx - Course Course Of Treatment: Pt presents to reporting 36 hours of body aches, fatigue, frontal COTTRELL and nausea. Pt reports mild chills, no fever. Did not get flu vaccine VSS Pt tired appearing turbinate inflammed, PND no cough, wheeze will check influenza, zofran urine (states chronic blood from renal colic) pt drinkign water - Differential Dx/Diagnosis Provider Diagnosis: Influenza-like illness Condition At Discharge: Stable Discharge ED - Sign-Out/Discharge Documenting (check all that apply): Patient Departure All imaging exams completed and their final reports reviewed: No Studies - Discharge Plan Condition: Stable Disposition: HOME Prescriptions: Ondansetron ODT TAB* [Zofran 4 MG Odt TAB*] 4 mg PO Q4H PRN #10 tab.odt PRN Reason: Nausea Oseltamivir Phosphate [Tamiflu] 75 mg PO BID #10 capsule Patient Education Materials: Viral Syndrome (ED) Referrals: Jaron Vyas MD [Primary Care Provider] - Additional Instructions: - Stay well hydrated. Drink plenty of non-alcoholic, non-caffinated beverages. - Take Tamiflu as prescribed until gone - Alternate ibuprofen (Advil, Motrin) 600mg and Tylenol every 3 hours for pain or fever. Take with food. Do NOT take for more than 4-5 days. Do NOT Take ibuprofen if you are taking Meloxicam - Okay to take medication as prescribed for nausea - These infections are spread by secretions - do NOT share eating or drinking utensils - clean items you share with other people such as cell phones, computer mouse, TV remote, computer tablets,etc. Once you start to feel better, change your toothbrush and your pillowcase. - get plenty of restful sleep - humidify the air in the room where you sleep - boil water, run a hot steam shower, vaporizer, cups of water by heat register - okay to take over the counter decongestant and cough medication - contact your doctor or return with questions or concerns - if you have uncontrolled vomiting, fever, pain or any other concerns is it recommended you go tot he emergency department for further evaluation and treatment - Billing Disposition and Condition Condition: STABLE Disposition: Home
[2019-11-11 18:25] LABS: Influenza A Molecular Negative (Negative); Influenza B Molecular Negative (Negative)
[2019-11-11] MEDS ORDERED: Ondansetron ODT TAB* 4 MG SL ONE (18:41)
[2019-11-11] MEDS ORDERED: Acetaminophen TAB* 325 MG PO ONE (19:16)
[2019-11-11 19:27] VITALS: BP 164/78
== END 2019-11-11 20:01 | disposition home or self-care (01) ==
LOC: UCEAST 17:14
DX: R53.83 Other fatigue (principal); M79.10 Myalgia, unspecified site; R05 Cough; R09.81 Nasal congestion; R51 Headache; R11.0 Nausea; R68.83 Chills (without fever); Z88.1 Allergy status to other antibiotic agents; Z88.5 Allergy status to narcotic agent; Z91.018 Allergy to other foods; Z91.048 Other nonmedicinal substance allergy status; Z91.09 Other allergy status, other than to drugs and biological substances
CPT/HCPCS: 81003; 99212; A9270-GY; G0463